=== PATIENT | female | born 1985 ===

== ENCOUNTER 2024-04-02 04:09 | Emergency (ER) | payer OTHER ==
--- NOTE | 2024-04-02 04:16 | ED Physician Documentation ---
PD HPI ABD PAIN - Stated complaint Stated Complaint: ABD PX - History obtained from History obtained from: Patient - Additional information Additional information: HPI from patient. Patient complains of abdominal pain. Pain woke her from sleep at approximately 11 PM. The pain is right-sided and greatest in RUQ. Pain waxes and wanes without any exacerbating or ameliorating factors. She had one episode of vomiting but since then has not had nausea/vomiting. She denies history of similar symptoms. Denies chance of (tubal ligation). The pain was 8 (on a scale of 0-10), but, without intervention, has improved to 5 by the time of this H&P. No abdominal surgical history (has had tubal ligation, ) Review of Systems Constitutional: reports: Sweats (brief diaphoresis when she had emesis x 1). denies: Fever, Chills Cardiac: reports: Reviewed and negative Respiratory: reports: Reviewed and negative GI: reports: Abdominal Pain, Nausea (resolved), Vomiting (x 1). denies: Abdominal Swelling, Constipation, Diarrhea, Hematemesis : denies: Dysuria, Frequency, Now EGA Musculoskeletal: denies: Back pain PD PAST MEDICAL HISTORY - Past Medical History Past Medical History: No - Present Medications Home Medications: Ambulatory Orders Medication Instructions Recorded Confirmed No Known Home Medications 04/02/24 04/02/24 - Allergies Allergies/Adverse Reactions: Allergies Allergy/AdvReac Type Severity Reaction Status Date / Time ketorolac [From Toradol] AdvReac Anaphylaxis Verified 04/02/24 07:15 Penicillins AdvReac Anaphylaxis Verified 04/02/24 04:18 PD ED PE NORMAL - Vitals Vital signs reviewed: Yes - General General: Alert and oriented X 3, Well developed/nourished, Other (appears to be in mild-moderate painful discomfort) - HEENT HEENT: Moist mucous membranes - Cardiac Cardiac: RRR, No murmur - Respiratory Respiratory: No respiratory distress, Clear bilaterally - Abdomen Abdomen: Soft, Non distended, Other (TTP which is greatest in RUQ without rebound or guarding; lesser TTP in epigastrium and RLQ) - Back Back: No CVA TTP - Derm Derm: Normal color, Warm and dry Results - Vitals Vitals: Vital Signs - 24 hr 04/02/24 04/02/24 04:15 04:16 Temperature 36.9 C 37.1 C Heart Rate 92 83 Respiratory 18 22 Rate Blood Pressure 135/80 H 126/66 O2 Saturation 99 98 Oxygen O2 Source Room air - Labs Labs: Laboratory Tests 04/02/24 04/02/24 04/02/24 04:49 04:49 05:00 WBC 7.2 RBC 4.88 Hgb 13.8 Hct 42.3 MCV 86.7 MCH 28.3 MCHC 32.6 RDW 13.8 Plt Count 208 MPV 8.6 Neut # (Auto) 5.6 Lymph # (Auto) 1.1 L [place] # (Auto) 0.4 Eos # (Auto) 0.0 Baso # (Auto) 0.0 Absolute Nucleated RBC 0.00 Nucleated RBC % 0.0 Sodium 135 Potassium 3.9 Chloride 103 Carbon Dioxide 23 Anion Gap 9.0 BUN 13 Creatinine 0.8 Estimated GFR (MDRD) 80 L Glucose 120 H Calcium 9.6 Total Bilirubin 0.6 AST 67 H ALT 52 Alkaline Phosphatase 106 Total Protein 7.9 Albumin 4.4 Globulin 3.5 Albumin/Globulin Ratio 1.3 Lipase 24 Urine Color YELLOW Urine Clarity CLEAR Urine pH 6.0 Ur Specific Helm <=1.005 Urine Protein NEGATIVE Urine Glucose (UA) NEGATIVE Urine Ketones NEGATIVE Urine Occult Blood TRACE-LYSE Urine Nitrite NEGATIVE Urine Bilirubin NEGATIVE Urine Urobilinogen 0.2 (NORMAL) Ur Leukocyte Esterase NEGATIVE Ur Microscopic Review NOT INDICATED Urine Culture Comments NOT INDICATED - Rads (name of study) CT A/P with IV contrast Relevant Findings:: Prelim report reviewed, See rad report PD Medical Decision Making - ED course Complexity details: reviewed results, re-evaluated patient, considered differential, d/w patient ED course: Normal CBC (insignificant exception is low lymphocytes, 1.1), unremarkable ER abdominal panel (minimally elevated AST (67) with otherwise normal LFTs, lipase), normal UA. Results of CT pending at end of my shift and thus care of this patient is turned over to the oncoming ED physician (Dr. Weller) at 7 AM. Late in my shift, patient is requesting pain medication. We discussed options and she is given 4mg IV zofran (to minimize potential for n/v) followed by 0.5mg IV dilaudid.
[2024-04-02] MEDS ORDERED: iohexoL-300 100 ML VIAL ONE (04:49)
[2024-04-02 04:59] LABS: BASOPHILS % (AUTO) 0.1 %; EOSINOPHILS % (AUTO) 0.6 %; HCT - HEMATOCRIT 42.3 % (37.0-47.0); HGB - HEMOGLOBIN 13.8 g/dL (12.0-16.0); LYMPHOCYTES # (AUTO) 1.1 10^3/uL (1.5-3.5); LYMPHOCYTES % (AUTO) 15.3 %; MEAN CORPUSCULAR HEMOGLOBIN 28.3 pg (27.0-31.0); MEAN CORPUSCULAR HGB CONC 32.6 g/dL (32.0-36.0); MEAN CORPUSCULAR VOLUME 86.7 fL (81.0-99.0); MEAN PLATELET VOLUME 8.6 fL (7.9-10.8); MONOCYTES # (AUTO) 0.4 10^3/uL (0.0-1.0); MONOCYTES % (AUTO) 5.9 %; NEUTROPHILS # (AUTO) 5.6 10^3/uL (1.5-6.6); NEUTROPHILS % (AUTO) 77.8 %; PLT - PLATELET COUNT 208 10^3/uL (130-450); RED BLOOD COUNT 4.88 10^6/uL (4.20-5.40); RED CELL DISTRIBUTION WIDTH 13.8 % (12.0-15.0); WHITE BLOOD COUNT 7.2 x10^3/uL (4.8-10.8)
[2024-04-02 05:12] LABS: ALBUMIN 4.4 g/dL (3.2-5.5); ALBUMIN/GLOBULIN RATIO 1.3 (1.0-2.2); BILIRUBIN,TOTAL 0.6 mg/dL (0.2-1.0); CALCIUM 9.6 mg/dL (8.5-10.3); CREATININE 0.8 mg/dL (0.6-1.3); POTASSIUM 3.9 mmol/L (3.5-4.5); TOTAL PROTEIN 7.9 g/dL (6.4-8.9)
[2024-04-02 05:27] LABS: BILIRUBIN,URINE NEGATIVE (NEGATIVE); GLUCOSE, URINE (UA) NEGATIVE (NEGATIVE); KETONES,URINE (UA) NEGATIVE (NEGATIVE); LEUKOCYTE ESTERASE, URINE NEGATIVE (NEGATIVE); NITRITE,URINE NEGATIVE (NEGATIVE); OCCULT BLOOD,URINE TRACE-LYSE (NEGATIVE); PROTEIN,URINE NEGATIVE (NEGATIVE); UROBILINOGEN,URINE 0.2 (NORMAL) E.U./dL (NORMAL)
[2024-04-02 05:29] LABS: CLARITY,URINE CLEAR (CLEAR)
[2024-04-02] MEDS: iohexoL-300 100 ML VIAL IVP ONE (05:35)
[2024-04-02] MEDS: ONDANSETRON 4 MG/2 ML VIAL IVP STA ×2 (06:31→07:48)
[2024-04-02] MEDS: HYDROmorphone 1 MG/ML CARPUJECT IVP STA ×2 (06:31→10:04)
[2024-04-02] MEDS: HYDROmorphone 0.5 MG/0.5 ML SYRINGE IVP STA (07:48)
[2024-04-02] MEDS: METOCLOPRAMIDE 10 MG/2 ML VIAL IVP STA (10:05)
--- NOTE | 2024-04-02 10:20 | CT Report ---
PROCEDURE: Abdomen/Pelvis W INDICATIONS: right-sided abdominal pain, RUQ>RLQ CONTRAST: OMNI 300, 100mls TECHNIQUE: After the administration of intravenous contrast, a CT scan of the abdomen and pelvis was performed. Images were recorded and evaluated at appropriate window settings. Reformats: coronal and sagittal. F or radiation dose reduction, the following was used: automated exposure control, adjustment of mA and /or kV according to patient size. COMPARISON: None. FINDINGS: Image quality: Diagnostic. Lower chest: Unremarkable. Liver: No solid mass. Gallbladder: Gallbladder is distended. No radiopaque stones or wall thickening. Biliary tree: No intrahepatic or extrahepatic dilation, accounting for age. Spleen: No splenomegaly. Pancreas: No pancreatic ductal dilation. Adrenals: No adrenal nodule. Kidneys and ureters: No hydronephrosis. No renal cystic lesion which requires follow up. No solid mas s. Stomach, bowel and peritoneum: No gastric or small bowel dilation. No abnormal wall thickening. No pa thologic free fluid. Appendix is visualized and is within normal limits. Lymph nodes: No central or retroperitoneal adenopathy. Vessels: No infrarenal aortic aneurysm. Patent portal vein. 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 PELVIS Reproductive organs: Unremarkable. Bladder: No abnormal wall thickening, accounting for underdistention. Pelvic lymph nodes: No pelvic adenopathy by size criteria. Bones: No aggressive osseous abnormality. Other: No significant ventral or inguinal hernia. IMPRESSION: 1. Normal appendix. No bowel obstruction or abnormal bowel wall thickening. No free fluid of free air . 2. Distended gallbladder. No gallstones or gallbladder wall thickening. No biliary ductal dilatation. If clinically warranted, ultrasound of abdomen can be done for further evaluation of this region. 3. Nonspecific finding of prominent right gonadal vein at the level of inferior right kidney. Findings are concordant with preliminary interpretation provided by [facility]. Reviewed by: Tommie Bueno MD on 04/02/2024 10:19 AM PDT Approved by: Tommie Bueno MD on 04/02/2024 10:19 AM PDT Station ID: [id number]
--- NOTE | 2024-04-02 10:21 | Ultrasound Report ---
PROCEDURE: Abdomen Limited INDICATIONS: RUQ abd pain TECHNIQUE: Real-time focused scanning was performed of the abdomen, with image documentation. COMPARISONS: Same day CT FINDINGS: Liver measures 15 cm. Mild to moderate increased echogenicity. Cholelithiasis without sonographic Carlos's sign. No pathologic wall thickening. CBD measures 4 mm. Pancreatic tail is obscured by bowel gas. Head is unremarkable. Right kidney measures 12 cm. IMPRESSION: Cholelithiasis without sonographic Carlos's sign. Mild to moderate hepatic echogenic appearance, nonspecific, most commonly due to steatosis. Reviewed by: Frank Dawkins MD on 04/02/2024 10:20 AM PDT Approved by: Frank Dawkins MD on 04/02/2024 10:20 AM PDT Station ID: [id number]
[2024-04-02 11:04] VITALS: BP 113/72; O2SAT 96
== END 2024-04-02 10:58 | disposition home or self-care (01) ==
LOC: ED 04:09
DX: R10.11 Right upper quadrant pain (principal); K80.20 Calculus of gallbladder without cholecystitis without obstruction
CPT/HCPCS: 36415; 74177; 76705; 80053; 81003; 83690; 85025; 96374; 96375; 96376; 99284; J1170; J2765; Q9967; 81001; 87086